=== PATIENT | male | born 1940 | race African-American/Black ===

== ENCOUNTER 2022-01-20 17:07 | Inpatient (IN) | payer MEDICARE, OTHER ==
[2022-01-20 22:34] LABS: BASO % 1.1 % (0-2.0); EOS % 3.4 % (0-4.5); HEMATOCRIT 35.4 % (35.4-49); HEMOGLOBIN 11.8 GM/dL (11.7-16.9); LYMPH % 28.4 % (8-40); MCH 30.6 pg (25.7-33.7); MCHC 33.3 g/dl (32.0-35.9); MEAN CELL VOLUME 91.7 fl (80-96); MEAN PLT VOLUME 7.1 fl (7.5-11.1); MONO % 7.5 % (3.8-10.2); NEUT % 59.6 % (42.8-82.8); PLATELET COUNT 440 10^3/uL (134-434); RBC 3.86 M/mm3 (4.00-5.60); RDW 15.8 % (11.9-15.9); WHITE BLOOD COUNT 4.4 K/mm3 (4.0-10.0)
[2022-01-20 22:41] LABS: INR 1.08 (0.83-1.09); PROTHROMBIN TIME (PATIENT) 12.4 SEC (9.7-13.0)
[2022-01-20 22:43] LABS: ACTIVATED PTT 32.9 SECONDS (25.2-36.5)
[2022-01-20 22:51] LABS: CALCIUM 9.3 mg/dL (8.5-10.1)
[2022-01-20 22:52] LABS: BLOOD UREA NITROGEN 15.1 mg/dL (7-18)
[2022-01-20 22:55] LABS: CREATININE 0.9 mg/dL (0.55-1.3)
[2022-01-20 22:56] LABS: BILIRUBIN,TOTAL 0.7 mg/dL (0.2-1)
[2022-01-20 22:57] LABS: TOT PROT 8.4 g/dl (6.4-8.2)
[2022-01-20] MEDS ORDERED: morphine CARPU-JECT 4 MG/1 ML DISP.SYRIN IVPUSH ONE (22:59)
[2022-01-20] MEDS ORDERED: morphine SULFATE 4 MG/ML VIAL ONE (23:15)
[2022-01-21] MEDS ORDERED: morphine SULFATE 4 MG/ML VIAL IVPUSH PRN (01:12)
[2022-01-21] MEDS: INSULIN SLIDING SCALE (NOVOLOG) 1 VIAL SQ SCH ×4 (01:15→16:27)
[2022-01-21 07:54] LABS: HEMATOCRIT 32.5 % (35.4-49); HEMOGLOBIN 10.6 GM/dL (11.7-16.9); MCHC 32.5 g/dl (32.0-35.9); MEAN CELL VOLUME 92.3 fl (80-96); MEAN PLT VOLUME 7.4 fl (7.5-11.1); PLATELET COUNT 408 10^3/uL (134-434); RBC 3.52 M/mm3 (4.00-5.60); RDW 16.2 % (11.9-15.9); WHITE BLOOD COUNT 3.9 K/mm3 (4.0-10.0)
[2022-01-21 08:10] LABS: BLOOD UREA NITROGEN 14.4 mg/dL (7-18); CALCIUM 9.1 mg/dL (8.5-10.1); MAGNESIUM 2.1 mg/dL (1.8-2.4)
[2022-01-21 08:13] LABS: PHOSPHOROUS 3.6 mg/dL (2.5-4.9)
[2022-01-21 08:14] LABS: CREATININE 0.9 mg/dL (0.55-1.3)
[2022-01-21] MEDS ORDERED: ATORVASTATIN CA 10 MG TABLET (FP) PO SCH (10:00)
[2022-01-21] MEDS ORDERED: LISINOPRIL 20 MG TABLET PO SCH (10:00)
[2022-01-21] MEDS ORDERED: LACTATED RINGERS SOLUTION 1,000 ML IV SCH (16:15)
[2022-01-21] MEDS ORDERED: DEXMEDETOMIDINE HCL 200 MCG/2 ML IVPB ONE (16:32)
[2022-01-21] MEDS ORDERED: LIDOCAINE HCL 1%, 10 MG/ML (20ML VIAL) ONE (16:33)
[2022-01-21] MEDS ORDERED: PROPOFOL 20 ML ONE (16:36)
[2022-01-21] MEDS ORDERED: ceFAZolin SODIUM 1 GM VIAL ONE ×2 (16:53)
[2022-01-21] MEDS ORDERED: ceFAZolin SODIUM 1 GM VIAL IVPB ONE (16:55)
[2022-01-21] MEDS ORDERED: LIDOCAINE HCL 1%, 10 MG/ML (20ML VIAL) NR ONE ×2 (17:06)
[2022-01-21] MEDS ORDERED: hydrALAZINE HCL 20 MG/ML VIAL IVPUSH ONE ×2 (19:20→19:26)
[2022-01-21] MEDS ORDERED: hydrALAZINE HCL 20 MG/ML VIAL ONE (19:21)
[2022-01-21] MEDS: morphine SULFATE 4 MG/ML VIAL IVPUSH PRN (21:36)
[2022-01-21] MEDS: ATORVASTATIN CA 10 MG TABLET (FP) PO SCH (21:38)
[2022-01-21] MEDS: LACTATED RINGERS SOLUTION 1,000 ML IV SCH (21:41)
[2022-01-22] MEDS: LACTATED RINGERS SOLUTION 1,000 ML IV SCH (05:19)
[2022-01-22] MEDS: INSULIN SLIDING SCALE (NOVOLOG) 1 VIAL SQ SCH ×3 (06:11→16:34)
[2022-01-22] MEDS ORDERED: INSULIN (NOVOLOG) ASPART 100 UNITS/ML 10ML VIAL ONE (06:40)
[2022-01-22 08:54] LABS: CALCIUM 8.5 mg/dL (8.5-10.1)
[2022-01-22 08:55] LABS: BLOOD UREA NITROGEN 13.8 mg/dL (7-18)
[2022-01-22] MEDS: LISINOPRIL 20 MG TABLET PO SCH (09:26)
[2022-01-22] MEDS: ASPIRIN 81 MG CHEWABLE TABLETS PO SCH (09:26)
[2022-01-22] MEDS: CLOPIDOGREL BISULFATE 75 MG TABLET (FP) PO SCH (09:27)
[2022-01-22] MEDS ORDERED: ASPIRIN 81 MG CHEWABLE TABLETS PO SCH (10:00)
[2022-01-22] MEDS ORDERED: CLOPIDOGREL BISULFATE 75 MG TABLET (FP) PO SCH (10:00)
[2022-01-22 12:32] VITALS: BMI 19.3
[2022-01-22 13:00] LABS: BASO % 0.3 % (0-2.0); EOS % 1.2 % (0-4.5); HEMATOCRIT 31.3 % (35.4-49); HEMOGLOBIN 10.6 GM/dL (11.7-16.9); LYMPH % 13.2 % (8-40); MCH 30.9 pg (25.7-33.7); MCHC 33.9 g/dl (32.0-35.9); MEAN PLT VOLUME 6.9 fl (7.5-11.1); MONO % 8.7 % (3.8-10.2); NEUT % 76.6 % (42.8-82.8); PLATELET COUNT 326 10^3/uL (134-434); RBC 3.44 M/mm3 (4.00-5.60); RDW 15.6 % (11.9-15.9)
[2022-01-22] MEDS: CEPHALEXIN MONOHYDRATE 500 MG CAPSULE (UD) PO SCH ×2 (14:49→21:24)
[2022-01-22] MEDS: morphine SULFATE 4 MG/ML VIAL IVPUSH PRN (21:24)
[2022-01-22] MEDS: ATORVASTATIN CA 10 MG TABLET (FP) PO SCH (21:24)
[2022-01-23] MEDS: INSULIN SLIDING SCALE (NOVOLOG) 1 VIAL SQ SCH ×2 (06:19→11:13)
[2022-01-23 07:43] VITALS: TEMP 98.9
[2022-01-23] MEDS: LISINOPRIL 20 MG TABLET PO SCH (09:13)
[2022-01-23] MEDS: CEPHALEXIN MONOHYDRATE 500 MG CAPSULE (UD) PO SCH (09:14)
[2022-01-23] MEDS: CLOPIDOGREL BISULFATE 75 MG TABLET (FP) PO SCH (09:14)
[2022-01-23] MEDS: ASPIRIN 81 MG CHEWABLE TABLETS PO SCH (09:14)
[2022-01-23 11:21] VITALS: BP 134/74; PULSE 81; RESP 18
== END 2022-01-23 12:08 | disposition home or self-care (01) | DRG 272 ==
LOC: JER 17:07 → JERBED 22:29 → J7W 01-21 09:45
PROVIDERS: ADMIT Internal Medicine
PROC: 047K341 Dilation of Right Femoral Artery with Drug-eluting Intraluminal Device, using Drug-Coated Balloon, Percutaneous Approach (ICD-10-PCS; 2022-01-21)
PROC: 3E05317 Introduction of Other Thrombolytic into Peripheral Artery, Percutaneous Approach (ICD-10-PCS; 2022-01-21)
PROC: 04CK3ZZ Extirpation of Matter from Right Femoral Artery, Percutaneous Approach (ICD-10-PCS; principal; 2022-01-21 17:30)
DX: T82.868A Thrombosis due to vascular prosthetic devices, implants and grafts, initial encounter (principal); I73.9 Peripheral vascular disease, unspecified; I10 Essential (primary) hypertension; E78.5 Hyperlipidemia, unspecified; Y83.9 Surgical procedure, unspecified as the cause of abnormal reaction of the patient, or of later complication, without mention of misadventure at the time of the procedure
CPT/HCPCS: 0241U-QW; 36415; 72192-TC; 73700-TC-RT; 76000-TC-FY; 80048; 80053; 82962; 83735; 84100; 85025; 85027; 85610; 85730; 86850; 86900; 86901; 93005; 93010; 94760; 97116-GP; 97161-GP; 99285-25; C1760; C1876